=== PATIENT | female | born 1995 | race American Indian/Alaskan Native ===

== ENCOUNTER 2018-01-19 02:49 | Emergency (ER) | payer SELFPAY ==
[2018-01-19 03:17] VITALS: BP 120/67; PULSE 82; RESP 18; TEMP 98.5; O2SAT 95
[2018-01-19] MEDS ORDERED: Lidocaine 1% (10 ml) Inj INFIL STA (03:22)
[2018-01-19] MEDS ORDERED: Tdap Vaccine 0.5 ml Vial (10-64 yrs) IM ONE ×2 (03:22→03:40)
[2018-01-19] MEDS ORDERED: Lidocaine 1% Inj (20ml) ONE (03:40)
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
== END 2018-01-19 04:15 | disposition home or self-care (01) ==
LOC: H.ER 02:49
DX: S01.112A Laceration without foreign body of left eyelid and periocular area, initial encounter (principal); W50.0XXA Accidental hit or strike by another person, initial encounter; Z23 Encounter for immunization